=== PATIENT | male | born 1975 | race Caucasian/White ===

== ENCOUNTER 2024-04-05 15:39 | Inpatient (IN) | payer OTHER ==
[~2024-04-05] VITALS: Ht 177.8 cm; Wt 81.8 kg
[2024-04-05] MEDS: ACETAMINOPHEN 500 MG TABLET PO ONE (19:59)
[2024-04-05] MEDS: MORPHINE SULFATE 2 MG/ML SYRINGE IVP ONE (20:00)
[2024-04-05 20:01] LABS: BASOPHILS % (AUTO) 1.1 % (0.0-2.0); EOSINOPHILS % (AUTO) 0.6 % (1.0-6.0); HEMATOCRIT 40.3 % (41-53); HEMOGLOBIN 13.2 g/dL (13.5-17.5); LYMPHOCYTES # (AUTO) 1.4 K/uL (1.0-4.8); LYMPHOCYTES % (AUTO) 30.6 % (22.0-44.0); MEAN CORPUSCULAR HEMOGLOBIN 29.6 pg (26.0-34.0); MEAN CORPUSCULAR HGB CONC 32.8 G/dL (31.0-37.0); MEAN CORPUSCULAR VOLUME 91 fL (80-100); MONOCYTES # (AUTO) 0.4 K/uL (0.1-1.0); MONOCYTES % (AUTO) 7.9 % (2.0-9.0); NEUTROPHILS # (AUTO) 2.7 K/uL (1.8-7.7); NEUTROPHILS % (AUTO) 59.8 % (40.0-70.0); PLATELET COUNT (AUTO) 226 K/uL (150-450); RED BLOOD CELL COUNT(AUTO) 4.45 MIL/uL (4.50-5.90); RED CELL DISTRIBUTION WIDTH 13.2 % (11.5-14.5); WHITE BLOOD COUNT (AUTO) 4.5 K/uL (4.5-11.0)
[2024-04-05 20:20] LABS: TROPONIN I-HIGH SENSITIVITY 6 ng/L (<76)
[2024-04-05 20:33] LABS: ANION GAP 2 mmol/L (8-16); CALCIUM, TOTAL 8.6 mg/dL (8.8-10.5); CARBON DIOXIDE 28 mmol/L (22-29); CHLORIDE 99 mmol/L (98-107); CREATININE 1.22 mg/dL (0.60-1.30); GLOMERULAR FILTR. RATE CALC > 60 mL/min (>60); GLUCOSE,RANDOM 96 mg/dL (70-110); POTASSIUM 3.8 mmol/L (3.5-5.1); SODIUM SERUM 129 mmol/L (136-145); UREA NITROGEN, BLOOD 9 mg/dL (7-18)
[2024-04-05 20:39] LABS: ALANINE AMINOTRANSFERASE 23 U/L (12-78); ALBUMIN 3.8 g/dL (3.4-5.0); ALKALINE PHOSPHATASE 53 U/L (46-116); ASPARTATE AMINOTRANSFERASE 21 U/L (15-37); BILIRUBIN,TOTAL 0.7 mg/dL (0.1-1.0); TOTAL PROTEIN, SERUM 6.8 g/dL (6.4-8.2)
[2024-04-05] MEDS ORDERED: ONDANSETRON HCL 4 MG/2 ML VIAL IVP PRN (21:45)
[2024-04-05 23:35] VITALS: BP 140/82; PULSE 56; RESP 18; TEMP 98; O2SAT 99
[2024-04-06] MEDS: HEPARIN SODIUM,PORCINE 5,000 UNITS/ML VIAL SQ SCH
[2024-04-06] MEDS: GABAPENTIN 100 MG CAPSULE PO SCH (00:27)
[2024-04-06] MEDS ORDERED: ALBU18HF12 IH (01:58)
[2024-04-06] MEDS ORDERED: CLOP75TA60 PO (01:58)
[2024-04-06] MEDS ORDERED: HYDR12.54 PO (01:58)
[2024-04-06] MEDS ORDERED: AMLO-258 PO (01:58)
[2024-04-06] MEDS: KETOROLAC TROMETHAMINE 15 MG/ML VIAL IVP PRN (07:09)
[2024-04-06 07:28] VITALS: BP 143/78; PULSE 57; RESP 18; TEMP 97.7; O2SAT 100
[2024-04-06 08:00] LABS: BASOPHILS % (AUTO) 0.9 % (0.0-2.0); EOSINOPHILS % (AUTO) 1.9 % (1.0-6.0); HEMATOCRIT 40.5 % (41-53); HEMOGLOBIN 13.5 g/dL (13.5-17.5); LYMPHOCYTES # (AUTO) 1.3 K/uL (1.0-4.8); LYMPHOCYTES % (AUTO) 34.1 % (22.0-44.0); MEAN CORPUSCULAR HGB CONC 33.3 G/dL (31.0-37.0); MEAN CORPUSCULAR VOLUME 90 fL (80-100); MONOCYTES # (AUTO) 0.4 K/uL (0.1-1.0); MONOCYTES % (AUTO) 11.2 % (2.0-9.0); NEUTROPHILS % (AUTO) 51.9 % (40.0-70.0); PLATELET COUNT (AUTO) 228 K/uL (150-450); RED CELL DISTRIBUTION WIDTH 13.1 % (11.5-14.5); WHITE BLOOD COUNT (AUTO) 3.8 K/uL (4.5-11.0)
[2024-04-06 08:09] LABS: ANION GAP 10 mmol/L (8-16); CALCIUM, TOTAL 8.6 mg/dL (8.8-10.5); CARBON DIOXIDE 28 mmol/L (22-29); CHLORIDE 101 mmol/L (98-107); CREATININE 1.24 mg/dL (0.60-1.30); GLOMERULAR FILTR. RATE CALC > 60 mL/min (>60); GLUCOSE,RANDOM 93 mg/dL (70-110); POTASSIUM 3.7 mmol/L (3.5-5.1); SODIUM SERUM 139 mmol/L (136-145); UREA NITROGEN, BLOOD 10 mg/dL (7-18)
[2024-04-06] MEDS: ACETAMINOPHEN 500 MG TABLET PO SCH (08:45)
[2024-04-06 19:40] VITALS: BP 135/65; PULSE 58; RESP 16; TEMP 97.7; O2SAT 100
[2024-04-07 08:04] VITALS: BP 141/75; PULSE 68; RESP 19; TEMP 98; O2SAT 100
[2024-04-07] MEDS: CYCLOBENZAPRINE HCL 10 MG TABLET PO PRN (11:33)
[2024-04-07] MEDS: METHYL SALICYLATE/MENTH/CAMPH TOPICAL PATCH TP SCH (12:27)
[2024-04-07] MEDS: DICLOFENAC SODIUM 1% 100 GM GEL [2GM] TP SCH (12:29)
[2024-04-07] MEDS: KETOROLAC TROMETHAMINE 15 MG/ML VIAL IM PRN (12:29)
[2024-04-07 15:14] VITALS: BP 131/78; PULSE 73; RESP 19; TEMP 97.6; O2SAT 100
[2024-04-07 20:17] VITALS: BP 126/80; PULSE 60; RESP 18; TEMP 98.4; O2SAT 100
[2024-04-08 04:20] VITALS: BP 128/77; PULSE 59; RESP 20; TEMP 97.4; O2SAT 100
[2024-04-08] MEDS: GABAPENTIN 100 MG CAPSULE PO PRN (08:43)
[2024-04-08 09:49] VITALS: BP 130/63; PULSE 80; RESP 20; TEMP 97.7; O2SAT 99
[2024-04-08] MEDS: PredniSONE 20 MG TABLET PO SCH (11:21)
[2024-04-08 20:30] VITALS: BP 140/87; PULSE 72; RESP 18; TEMP 98.2; O2SAT 100
[2024-04-09 08:30] VITALS: BP 138/78; PULSE 69; RESP 17; TEMP 98; O2SAT 98
[2024-04-09 19:51] VITALS: BP 134/68; PULSE 66; RESP 18; TEMP 98.3; O2SAT 97
[2024-04-10 05:08] VITALS: BP 121/69; PULSE 58; RESP 18; TEMP 97.8; O2SAT 100
[2024-04-10 05:26] VITALS: BP 95/61; PULSE 59; RESP 18; TEMP 97.6; O2SAT 97
[2024-04-10 08:29] VITALS: BP 124/65; PULSE 68; RESP 18; TEMP 98.1; O2SAT 100
[2024-04-10 20:55] VITALS: BP 124/73; PULSE 59; RESP 18; TEMP 98.2; O2SAT 100
[2024-04-11 08:00] VITALS: BP 157/73; PULSE 62; RESP 18; TEMP 98; O2SAT 98
[2024-04-11] MEDS: ACETAMINOPHEN 325 MG TABLET PO PRN (16:01)
[2024-04-11 20:47] VITALS: BP 129/63; PULSE 67; RESP 18; TEMP 98.3; O2SAT 98
[2024-04-11] MEDS ORDERED: ALBUTEROL SULFATE HFA 90 MCG/PUFF 8 GM INHALER IH PRN (22:15)
[2024-04-12 08:25] VITALS: BP 143/56; PULSE 82; RESP 20; TEMP 98.4; O2SAT 100
[2024-04-12 12:59] LABS: BASOPHILS % (AUTO) 1.2 % (0.0-2.0); EOSINOPHILS % (AUTO) 1.6 % (1.0-6.0); HEMATOCRIT 41.8 % (41-53); LYMPHOCYTES % (AUTO) 25.6 % (22.0-44.0); MEAN CORPUSCULAR HEMOGLOBIN 30.2 pg (26.0-34.0); MEAN CORPUSCULAR HGB CONC 33.4 G/dL (31.0-37.0); MEAN CORPUSCULAR VOLUME 91 fL (80-100); MONOCYTES # (AUTO) 0.3 K/uL (0.1-1.0); MONOCYTES % (AUTO) 8.9 % (2.0-9.0); NEUTROPHILS # (AUTO) 2.4 K/uL (1.8-7.7); NEUTROPHILS % (AUTO) 62.7 % (40.0-70.0); PLATELET COUNT (AUTO) 244 K/uL (150-450); RED BLOOD CELL COUNT(AUTO) 4.62 MIL/uL (4.50-5.90); RED CELL DISTRIBUTION WIDTH 13.3 % (11.5-14.5); WHITE BLOOD COUNT (AUTO) 3.8 K/uL (4.5-11.0)
[2024-04-12 13:04] LABS: RBC MORPHOLOGY COMMENT NORMAL RBC MORPH
[2024-04-12 13:09] LABS: ANION GAP 5 mmol/L (8-16); CARBON DIOXIDE 29 mmol/L (22-29); CHLORIDE 99 mmol/L (98-107); CREATININE 1.28 mg/dL (0.60-1.30); GLOMERULAR FILTR. RATE CALC > 60 mL/min (>60); GLUCOSE,RANDOM 141 mg/dL (70-110); POTASSIUM 4.1 mmol/L (3.5-5.1); SODIUM SERUM 133 mmol/L (136-145); UREA NITROGEN, BLOOD 18 mg/dL (7-18)
[2024-04-12] MEDS: CEPHALEXIN MONOHYDRATE 500 MG CAPSULE PO SCH (13:16)
[2024-04-12 19:40] VITALS: BP 129/71; PULSE 68; RESP 20; TEMP 97.9; O2SAT 100
[2024-04-13 05:49] VITALS: BP 129/67; PULSE 71; RESP 20; TEMP 97.7; O2SAT 100
[2024-04-13 08:00] VITALS: BP 131/82; PULSE 59; RESP 18; TEMP 97.5; O2SAT 97
[2024-04-14] MEDS ORDERED: PredniSONE 20 MG TABLET PO SCH (09:00)
[2024-04-15] MEDS ORDERED: ACET-66 PO (15:18)
[2024-04-15] MEDS ORDERED: DICL100G60 TP (15:22)
[2024-04-15] MEDS ORDERED: CEPH-558 PO (15:22)
[2024-04-15] MEDS ORDERED: HEPA500018 SQ (15:23)
[2024-04-15] MEDS ORDERED: METH1ADH11 TP (15:24)
== END 2024-04-15 18:15 | DRG 554 ==
LOC: EMS 15:39 → EDH 21:44 → 6S 23:28
PROVIDERS: ADMIT Internal Medicine; ATTEND Internal Medicine
DX: M15.8 Other polyosteoarthritis (principal); E87.1 Hypo-osmolality and hyponatremia; L03.115 Cellulitis of right lower limb; M54.10 Radiculopathy, site unspecified; Z91.199 Patient's noncompliance with other medical treatment and regimen due to unspecified reason
CPT/HCPCS: 70551; 72128; 72131; 72141; 72146; 72148; 80048; 80053; 83735; 84484; 85025; 85651; 86140; 93005; 97110; 97116; 97162; 97166; 97530; 97535; 99285; J1644; J1885; J2270